=== PATIENT | male | born 1995 | race Caucasian/White ===

== ENCOUNTER 2019-10-05 21:46 | Emergency (ER) | payer OTHER ==
[~2019-10-05] VITALS: Ht 182.9 cm; Wt 126.5 kg
[2019-10-05 22:22] LABS: ABSOLUTE BASOPHILS 0.1 thou/uL (0.0-0.2); ABSOLUTE EOSINOPHILS 0.1 thou/uL (0.0-0.7); ABSOLUTE LYMPHOCYTES 4.5 thou/uL (0.8-5.3); ABSOLUTE MONOCYTES 0.8 thou/uL (0.0-1.2); ABSOLUTE NEUTROPHILS 4.2 thou/uL (1.6-8.1); BASOPHILS 0.9 %; EOSINOPHILS 1.4 %; HEMATOCRIT 44.7 % (42.0-52.0); HEMOGLOBIN 15.5 gm/dL (14.0-18.0); LYMPHOCYTES 46.5 %; MCH 32.5 pg (26.0-34.0); MCHC 34.7 g/dL (28.0-37.0); MCV 93.5 fL (80.0-100.0); MONOCYTES 8.4 %; MPV 10.1 fl. (7.2-11.1); NUCLEATED RBCS 0 /100WBC; PLATELET COUNT* 255 thou/uL (150-400); POLYS 42.8 %; RBC 4.78 mil/uL (4.50-6.00); RDW-CV 13.6 % (10.5-14.5); WBC 9.7 thou/uL (4.0-11.0)
[2019-10-05 22:25] LABS: CALCIUM 8.8 mg/dL (8.5-10.1); CREATININE 1.1 mg/dL (0.6-1.3); POTASSIUM 3.6 mmol/L (3.5-5.1)
[2019-10-05 22:29] LABS: ALBUMIN 4.6 g/dL (3.4-5.0); PROTIME 10.7 Seconds (9.20-11.50); TOTAL BILIRUBIN 0.5 mg/dL (<0.1-1.0); TOTAL PROTEIN 7.9 g/dL (6.4-8.2)
[2019-10-05 22:38] LABS: URINE BILIRUBIN NEGATIVE (Negative); URINE BLOOD NEGATIVE (Negative); URINE CLARITY CLEAR; URINE COLOR YELLOW; URINE GLUCOSE-RANDOM NEGATIVE (Negative); URINE KETONES TRACE (Negative); URINE LEUKOCYTES-REFLEX NEGATIVE (Negative); URINE NITRITE-REFLEX NEGATIVE (Negative); URINE PROTEIN NEGATIVE (Negative); URINE UROBILINOGEN 0.2 E.U./dl (0.2-1.0)
[2019-10-05] MEDS ORDERED: OMEPRAZOLE 20 M20 M1 PO (22:49)
[2019-10-05] MEDS ORDERED: CARAFATE 1 GM TA1 GM PO (22:49)
[2019-10-05 23:00] VITALS: BP 121/67
--- NOTE | 2019-10-06 08:52 | EKG ---
[place] [address] ELECTROCARDIOGRAM REPORT Name: CONRADO KINGSLEY Room: [facility]#: [id number] Admission: 10/05/19 Attend Phys: Discharge: 10/05/19 Date of : [birth year] Date of Service: 10/05/192148 Report #: [id number] THIS REPORT FOR: //name// [facility] ED Test Date: 2019-10-05 Test Time: 21:49:35 Pat Name: CONRADO KINGSLEY Department: Room: Gender: Pediatric Hospitalist: RADHA : 1995 Requested By: Alessandra Castaneda Order Number: [id number] MD: Jones Meeks Measurements Intervals [place] Rate: 78 P: 47 [place]: 155 QRS: 261 QRSD: 105 T: 21 QT: 415 QTc: 473 Interpretive Statements Sinus rhythm Right superior axis Low voltage, extremity leads Borderline prolonged QT interval Lead(s) III were not used for morphology analysis No previous ECG available for comparison Electronically Signed On 10-06-2019 8:50:53 CDT by Jones Meeks [email or web address] <ELECTRONICALLY SIGNED> By: Jones Meeks MD, FAC 10/06/19 0850 2149 [id number] Jones Meeks MD, [facility] /EPI
== END 2019-10-05 23:05 | disposition home or self-care (01) ==
LOC: M.ERS 21:46
PROVIDERS: Personal Emergency Response Attendant
DX: K21.9 Gastro-esophageal reflux disease without esophagitis (principal); K80.50 Calculus of bile duct without cholangitis or cholecystitis without obstruction; J45.909 Unspecified asthma, uncomplicated